=== PATIENT | female | born 1990 | race Caucasian/White ===

== ENCOUNTER 2017-10-18 11:33 | Emergency (ER) | payer SELFPAY ==
[2017-10-18 12:18] VITALS: BP 106/70
[2017-10-18] MEDS ORDERED: Lidocaine 1%* 5 ML VIAL ONE (12:26)
--- NOTE | 2017-10-18 12:27 | UC ---
UC General HPI - HPI Summary HPI Summary: PT IS C/O A BOIL TO HER BUTTOC AREA. BEGAN 4 DAYS AGO. HAD THE SAME ONCE BEFORE AND NEEDED IT DRAINED. NO HX MRSA OR DM. - History of Current Complaint Stated Complaint: PERSONAL Time Seen by Provider: 10/18/17 12:09 Hx Obtained From: Patient Hx Last Menstrual Period: 10/13/17 Onset/Duration: Gradual Onset Timing: Constant Pain Intensity: 0 Aggravating: ANY PRESSURE OR MOVEMENT Associated Signs & Symptoms: Negative: Fever - Allergy/Home Medications Allergies/Adverse Reactions: Allergies Allergy/AdvReac Type Severity Reaction Status Date / Time bee venom protein (honey bee) Allergy Swelling Verified 10/18/17 12:11 Home Medications: Home Medications Levothyroxine TAB* [Synthroid TAB*] 75 mcg PO DAILY 10/18/17 [History Confirmed 10/18/17] buPROPion TAB* [Wellbutrin TAB*] 150 mg PO BID 10/18/17 [History Confirmed 10/18] PMH/Surg Hx/FS Hx/Imm Hx Endocrine History: Thyroid Disease Psychological History: Anxiety - Surgical History Surgical History: Yes Surgery Procedure, Year, and Place: C-Sections, 2013 2007 2005 - Family History Known Family History: Positive: None - Social History Occupation: Works From/At Home - [employer] Lives: With Family Alcohol Use: Rare Substance Use Type: None Smoking Status (MU): Former Smoker Length of Time of Smoking/Using Tobacco: <1/2 PPD x 6 Years When Did the Patient Quit Smoking/Using Tobacco: 2012 - Immunization History Vaccination Up to Date: Yes Review of Systems Constitutional: Negative Skin: Other - BOIL BUTTOCK Eyes: Negative ENT: Negative Respiratory: Negative Cardiovascular: Negative Gastrointestinal: Negative Genitourinary: Negative Motor: Negative Neurovascular: Negative Musculoskeletal: Negative Neurological: Negative Psychological: Negative Is Patient Immunocompromised?: No All Other Systems Reviewed And Are Negative: Yes Physical Exam Triage Information Reviewed: Yes Appearance: Well-Appearing Vital Signs: Initial Vital Signs Temp 97.9 F 10/18/17 12:09 Pulse 70 10/18/17 12:09 Resp 16 10/18/17 12:09 BP 106/70 10/18/17 12:09 Pulse Ox 100 10/18/17 12:09 Vital Signs Reviewed: Yes Eyes: Positive: Conjunctiva Clear ENT: Positive: Normal ENT inspection Neck: Positive: Supple, Nontender, No Lymphadenopathy Respiratory: Positive: Lungs clear, Normal breath sounds Cardiovascular: Positive: RRR, No Murmur Abdomen Description: Positive: Nontender, No Organomegaly, Soft, Other: - NO INGUINAL ADENOPATHY Bowel Sounds: Positive: Present Musculoskeletal: Positive: ROM Intact Neurological: Positive: Alert Psychological: Positive: Age Appropriate Behavior Skin Exam: Normal, Other - 2CM AREA OF ERYTHEMA AND FLUCTUANCE TO UPPER GLUTEAL FOLD. IT IS VERY TENDER, Procedures - Procedure Summary Procedure Summary: TIME OUT DONE. SITE PREP BETADINE. LOCAL WITH 1% LIDOCAINE AND 30G NEEDLE. TIP OF #11 BLADE USED TO MAKE A STAB INCISION. PUSS DRAINED AND CULTURED. EXPLORED WITH BLUNT FORCEP AND CAVITY TRACKS UPWARD, MORE PUSS NOTED. IRRIGATED STERILE WATER. SMALL PIECE OF WOUND PACK PLACED. STERILE TECHNIQUE USED FOR PROCEDURE. DRESSING APPLIED. MINIMAL BLEEDING AND PT TOLERATED WELL. NO PCP, PT OFFERED RETURN TO [place] OR CAN GO TO [place] [facility] PLUS PHYSICIAN LIASON GIVEN WELL. Diagnostics - Laboratory Diagnostic Studies Completed/Ordered: WOUND CULTURE PENDING Course/Dx - Differential Dx - Multi-Symptom Provider Diagnoses: PILONIDAL CYST Discharge - Sign-Out/Discharge Documenting (check all that apply): Discharge/Admit/Transfer - Discharge Plan Condition: Improved Disposition: HOME Patient Education Materials: Pilonidal Cyst (ED) Referrals: [facility] [place] PHYSICIAN REFERRAL [Outside] Additional Instructions: YOU SHOULD CALL PHYSICIAN REFERRAL TODAY. THEY WILL HELP YOU FIND A DOCTOR. RETURN IN 2 DAYS FOR A RECHECK OR SOONER IF NEEDED. YOU MAY ALSO TRY THE [facility] IN [place]. - Billing Disposition and Condition Condition: IMPROVED Disposition: HOME
[2017-10-18] MEDS ORDERED: Lidocaine 1% MPF* 2 ML VIAL INJ ONE (12:55)
--- NOTE | 2017-10-22 07:23 | UC ---
- Progress Note Progress Note: wound culture: MRSA neg staph neg normal ileana 2+ no change tx 10/22/16 7:23am Lynette Discharge - Sign-Out/Discharge Documenting (check all that apply): Post-Discharge Follow Up - Discharge Plan Condition: Improved Disposition: HOME Patient Education Materials: Pilonidal Cyst (ED) Referrals: [facility] [place]IAN REFERRAL [Outside] Additional Instructions: YOU SHOULD CALL PHYSICIAN REFERRAL TODAY. THEY WILL HELP YOU FIND A DOCTOR. RETURN IN 2 DAYS FOR A RECHECK OR SOONER IF NEEDED. YOU MAY ALSO TRY THE [facility] [place]. - Billing Disposition and Condition Condition: IMPROVED Disposition: HOME
== END 2017-10-18 13:09 | disposition home or self-care (01) ==
LOC: UCCORT 11:33
DX: L05.91 Pilonidal cyst without abscess (principal); E07.9 Disorder of thyroid, unspecified; F41.9 Anxiety disorder, unspecified; Z91.030 Bee allergy status; Z87.891 Personal history of nicotine dependence
CPT/HCPCS: 10080; 87070; 87077; 87205; 87640; 87641; 99201; G0463

== ENCOUNTER 2018-12-10 17:15 | Emergency (ER) | payer OTHER ==
[2018-12-10 17:34] VITALS: BP 124/81
--- NOTE | 2018-12-10 17:52 | UC ---
Bite Injury/Animal HPI - HPI Summary HPI Summary: Per order checker: "Bit by dog this morning. Dog unknown to pt, stray dog. Gash to back of right hand. Continues to bleed. Pt treated with triple antibiotic ointment. " -she was walkinmg down the street in her neighborhood and saw a dog. she called the dog to her to pet her. a motorcycle drove by quickly which seemed to have starteled the dog and it bit her. she does not know the dog. she knows her neighbor's dogs and this was a strange dog. she punched the dog in , it let go and took off into a field. she came in b/c the bleeding had not stopped. 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 she is strapped for time and needs to leave in a hurry. - History of Current Complaint Chief Complaint: UCBiteInjury Stated Complaint: DOG BITE LEFT HAND Time Seen by Provider: 12/10/18 17:30 Hx Last Menstrual Period: fixed Pain Intensity: 0 - Allergies/Home Medications Allergies/Adverse Reactions: Allergies Allergy/AdvReac Type Severity Reaction Status Date / Time bee venom protein (honey bee) Allergy Swelling Verified 12/10/18 17:34 Home Medications: Home Medications Meloxicam 7.5 mg PO DAILY PRN 12/10/18 [History Confirmed 12/10/18] Methocarbamol TAB* [Robaxin 500 MG TAB*] 500 mg PO TID PRN 12/10/18 [History Confirmed 12/10/18] PMH/Surg Hx/FS Hx/Imm Hx Previously Healthy: Yes - Surgical History Surgical History: Yes Surgery Procedure, Year, and Place: C-Sections, 2013 2007 2005 - Family History Known Family History: Positive: Non-Contributory - Social History Alcohol Use: Rare Substance Use Type: None Smoking Status (MU): Current Every Day Smoker Amount Used/How Often: 1/2 ppd Length of Time of Smoking/Using Tobacco: March 2018 When Did the Patient Quit Smoking/Using Tobacco: 2012 - Immunization History Most Recent Tetanus Shot: March 2018 Vaccination Up to Date: Yes Review of Systems All Other Systems Reviewed And Are Negative: Yes Constitutional: Positive: Negative Skin: Positive: Other Respiratory: Positive: Negative Cardiovascular: Positive: Negative Gastrointestinal: Positive: Negative Genitourinary: Positive: Negative Motor: Positive: Negative Neurovascular: Positive: Negative Musculoskeletal: Positive: Negative Neurological: Positive: Negative Psychological: Positive: Negative Is Patient Immunocompromised?: No Physical Exam Triage Information Reviewed: Yes Appearance: Well-Appearing, No Pain Distress, Well-Nourished - very pleasant Vital Signs: Initial Vital Signs Temp 99 F 12/10/18 17:27 Pulse 76 12/10/18 17:27 Resp 16 12/10/18 17:27 BP 124/81 12/10/18 17:27 Pulse Ox 96 12/10/18 17:27 Vital Signs Reviewed: Yes ENT Exam: Normal Respiratory Exam: Normal Cardiovascular Exam: Normal Musculoskeletal Exam: Normal Musculoskeletal: Positive: Strength Intact, ROM Intact Neurological Exam: Normal Psychological Exam: Normal Skin: Positive: Other - right habd w/ 9 total wounds. the biggest on extensor hand ~ 1 cm, much smaller wounds on extensor hand, 1 on lateral and 1 on palm. Bite Injury Course/Dx - Course Course Of Treatment: It is not in her best interest to not be treated with antibiotics and I will therefore treat her with antibiotics. augmentn 875mgs BID x 10 d sent to pharmacy. -1st dose given here -probiotic recommended -she signed out AMA bc she had to get her child -[facility] health dept Dr Teja Montana called while she was being dc'd. reassuring that there have been no dog rabies cases in the [facility] in 60 yrs bc it has been eradicated. He asked to NOT start rabies vaccine series. Instead he recommended we fax the dog bite from to [phone] and she should await a call within 10 days with further instructions. -she is UTD w/ tetanus in 04/09 -wound acre done. no further bleeding. irrigated. -she has been given these recommendations and told to disregard her dc ppwk stating to go to the ER based on conversatipon w/ Dr Montana. she is very appreciative and very apologetic for causing any issues. she was more than willing to go to ER tonight if need be. -she planne dto call PCP in her area to [facility] care. recently moved from [place]. -she is aware to watch for any signs of infection - red, d/c, warmth, fevers/ chills. - Differential Dx/Diagnosis Differential Diagnosis/HQI/PQRI: Cellulitis, Compartment Syndrome, Laceration, Puncture Provider Diagnosis: Dog bite of right hand Discharge - Sign-Out/Discharge Documenting (check all that apply): Patient Departure All imaging exams completed and their final reports reviewed: No Studies - Discharge Plan Condition: Stable Disposition: AGAINST MEDICAL ADVICE Prescriptions: Amoxicillin/Clavulanate TAB* [Augmentin TAB 875*] 875 mg PO BID #20 tab Patient Education Materials: Animal Bite (ED) Referrals: No Primary Care Phys,NOPCP [Primary Care Provider] - Additional Instructions: Please go directly to the emergency room in [facility] for further evaluation as they will likely be recommending rabies shots. You will likely be getting a call from the [facility] dept from [facility] as well. - Billing Disposition and Condition Condition: STABLE Disposition: Against Medical Advice
[2018-12-10] MEDS ORDERED: Amoxicillin/Clavulanate TAB* 875 MG PO ONE (18:01)
== END 2018-12-10 18:20 | disposition left against medical advice (07) ==
LOC: UCCORT 17:15
DX: S61.451A Open bite of right hand, initial encounter (principal); W54.0XXA Bitten by dog, initial encounter; Y93.89 Activity, other specified; Y92.410 Unspecified street and highway as the place of occurrence of the external cause; F17.210 Nicotine dependence, cigarettes, uncomplicated
CPT/HCPCS: 99212; A9270-GY; G0463